=== PATIENT | female | born 1985 | race African-American/Black ===

== ENCOUNTER 2018-05-26 18:34 | Emergency (ER) | payer MEDICAID ==
[~2018-05-26] VITALS: Ht 172.7 cm; Wt 101.6 kg
[2018-05-26 21:32] LABS: BASOPHIL % 0.3 % (0-2); PLATELET COUNT 356 x10^3mcL (130-400); RED CELL DISTRIBUTION WIDTH 15.7 % (11.5-14.5)
[2018-05-26 21:49] LABS: CALCIUM 8.2 mg/dL (8.5-10.1); CARBON DIOXIDE 26.8 mmol/L (21-32); CHLORIDE SERUM 105 mmol/L (98-107); CREATININE SERUM 0.7 mg/dL (0.6-1.0); GFR1 > 60 mL/min; GLUCOSE SERUM 91 mg/dL (74-106); POTASSIUM SERUM 3.4 mmol/L (3.5-5.1); SODIUM SERUM 140 mmol/L (136-145)
[2018-05-26 22:07] VITALS: BP 104/55
== END 2018-05-26 22:40 | disposition home or self-care (01) ==
LOC: ED 18:34
PROVIDERS: Emergency Medicine
DX: R07.89 Other chest pain (principal); E87.6 Hypokalemia
CPT/HCPCS: 36415; 83880

== ENCOUNTER 2020-02-03 01:53 | Emergency (ER) | payer MEDICAID ==
[~2020-02-03] VITALS: Ht 170.2 cm; Wt 117.9 kg
[2020-02-03 01:58] VITALS: BP 129/59; Ht 170.2 cm; Wt 117.9 kg
== END 2020-02-03 02:36 | disposition home or self-care (01) ==
LOC: ED 01:53
DX: R07.89 Other chest pain (principal); R06.02 Shortness of breath
CPT/HCPCS: Q0092